=== PATIENT | female | born 1985 | race Caucasian/White ===

== ENCOUNTER 2022-01-31 12:43 | Emergency (ER) | payer SELFPAY ==
[2022-01-31] MEDS ORDERED: Lidocaine/Epineph/Tetracaine 3 ML Syringe TOP ONE (13:02)
[2022-01-31] MEDS ORDERED: Bacitracin Oint 1 GM U/D Packet TOP ONE (13:19)
== END 2022-01-31 13:29 | disposition home or self-care (01) ==
LOC: MW.ED 12:43
DX: S61.303A Unspecified open wound of left middle finger with damage to nail, initial encounter (principal); Z91.013 Allergy to seafood
CPT/HCPCS: 99283; A9270; 99282